=== PATIENT | male | born 1990 | race African-American/Black ===

== ENCOUNTER 2018-09-28 03:23 | Emergency (ER) | payer MEDICAID ==
[~2018-09-28] VITALS: Ht 185.4 cm; Wt 72.6 kg
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
[2018-09-28 03:44] VITALS: BP 122/82
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
[2018-09-28 03:57] VITALS: BP 122/82
--- NOTE | 2018-09-28 03:58 | NUR ---
ER DISCHARGE NOTE: Patient is cleared to be discharged per ERMD, pt is aox4, on room air, with stable vital signs. pt was given dc and prescription instructions, pt was able to verbalize understanding, pt id band removed without complications. pt is able to ambulate with steady gait. pt took all belongings.
== END 2018-09-28 03:58 | disposition home or self-care (01) ==
LOC: EMR 03:50
DX: Z00.00 Encounter for general adult medical examination without abnormal findings (principal); R52 Pain, unspecified
CPT/HCPCS: 99281